=== PATIENT | female | born 1960 | race African-American/Black ===

== ENCOUNTER 2017-04-10 02:56 | Inpatient (IN) ==
[2017-04-10] MEDS ORDERED: Ondansetron ODT 4 MG TAB.RAPDIS SL ONE (06:03)
--- NOTE | 2017-04-10 09:11 | Internal Med History&Physical ---
Date of Encounter: 04/10/17 Time of Encounter: 09:09 Assessment and Plan (1) BRBPR (bright red blood per rectum) Current visit: Yes Status: Acute Check stool for occult blood. Follow H&H. Gastroenterology consultation (2) Alcohol withdrawal Current visit: Yes Status: Acute Start patient on CIWA protocol. Qualifiers: Qualified Code(s): F10.239 - Alcohol dependence with withdrawal, unspecified Internal Medicine - H&P: HPI Chief complaint: bleeding per rectum History of present illness: Ms. Bradley is a 56 year old female with history of hepatitis C virus, mixed connective tissue disease, hypertension, breast-cancer status post left lumpectomy and neuropathy, daily alcoholic drinks approximately half a 5th of alcohol daily was sent from the [facility] because of concern on G.I. bleeding. Yesterday patient had an episode of bright red bleeding per rectum. She denies any Melena nausea or hematemesis. She denies any abdominal pain. She denies constipation and does not think this is similar to her prior hemorrhoidal bleeding. She had a colonoscopy 5 years ago which was unremarkable. She denies taking any antiplatelet or anticoagulant medications. She denies taking nonsteroidal drugs on regular basis. Patient denies any suicidal thoughts. Past Med Surg Social Fam HX - Past Medical History Medical history: arthritis, DVT, GERD, hepatitis, hypertension, RA Psychiatric history: anxiety - Social History Smoking Status: Never smoker Smokeless Tobacco Status: No Alcohol use: heavy, recent Drug use: none - Family History Father Living Status: Cause of : Pancreatitis Hx Family Cardiac Disorders: No Hx Family Respiratory Disorders: No Hx Family Cancer: Yes Hx Family GI Disorders: No Hx Family Genitourinary Disorders: No Hx Family Endocrine Disorder: Yes Hx Family Musculoskeletal Disorders: No Hx Family Neuromuscular Disorders: No Hx Family Neurologic Disorders: Yes Hx Family HEENT Disorders: No Hx Family Autoimmune Disorders: No Hx Family Reproductive Disorders: No Internal Medicine - H&P: Meds Gabapentin [Neurontin] 300 mg PO BID 04/10/17 [History] Omeprazole 20 mg PO DAILY 04/10/17 [History] Trazodone HCl 100 mg PO HS 04/10/17 [History] Valsartan/Hydrochlorothiazide [Diovan Hct 320-25 mg Tablet] 1 each PO DAILY 10/22 [History] Venlafaxine XR (24 HR) [Effexor XR] 37.5 mg PO BID 04/10/17 [History] amLODIPine [Norvasc] 5 mg PO DAILY 04/10/17 [History] 3 Allergy/AdvReac Type Severity Reaction Status Date / Time No Known Allergies Allergy Verified 04/10/17 05:19 All Systems PM: A 10-system review of systems was performed and is negative for pertinent findings except as documented above in the HPI. Review of systems: 10.2 use systems is negative except for HPI - Constitutional Vitals: Temp Pulse Resp BP Pulse Ox 98.4 F 105 16 160/92 97 04/10/17 07:03 04/10/17 07:03 04/10/17 07:03 04/10/17 07:03 04/10/17 07:03 Exam: Gen.: patient is alert oriented times 3 cardiac: normal S1 S2 no additional sounds or murmurs chest: no active wheezing or bronchial breathing abdomen soft nontender nondistended normal bowel sounds lower extremity no swelling. Neuro: no new focal deficits
[2017-04-10] MEDS ORDERED: Ondansetron 4 MG/2 ML VIAL IVP PRN (09:15)
[2017-04-10] MEDS ORDERED: Valsartan 320 MG, hydroCHLOROthiazide 25 MG PO SCH (09:22)
[2017-04-10] MEDS: Valsartan 160 MG TABLET PO SCH (12:07)
[2017-04-10] MEDS: *HR* LORazepam 2 MG/ML VIAL IVP PRN ×2 (12:07→17:14)
[2017-04-10] MEDS: hydroCHLOROthiazide 25 MG TABLET PO SCH (12:07)
[2017-04-10] MEDS: amLODIPine 5 MG TABLET PO SCH (12:07)
[2017-04-10 12:23] LABS: Basophils % 1.1 %; Eosinophils # 0.1 K/mcL (0.0-0.6); Eosinophils % 3.6 %; Hematocrit 34.8 % (35.3-44.9); Immature Granulocytes % 0.4 % (0-4); Lymphocytes % 30.2 %; Mean Corpuscular HGB Conc 31.6 g/dL (31.6-35.5); Mean Corpuscular Hemoglobin 28.3 pg (28.0-33.3); Mean Corpuscular Volume 89.5 fL (83.0-100.0); Mean Platelet Volume 11.1 fL (9.4-12.4); Monocytes % 23.3 %; Platelet Count 122 K/mcL (140-400); Red Blood Count 3.89 M/mcL (3.82-4.97); Red Cell Distribution Width 14.8 % (11.5-14.5); Segmented Neutrophils % 41.4 %
[2017-04-10 12:25] LABS: Lymphocytes # 0.9 K/mcL (0.6-4.6); Monocytes # 0.7 K/mcL (0.0-1.3); Neutrophils # 1.2 K/mcL (1.6-8.9)
[2017-04-10 12:28] LABS: Prothrombin Time 10.6 Seconds (9.4-12.1)
[2017-04-10 12:31] LABS: Activated Partial Thrombo Time 44.7 Seconds (26.0-36.0)
[2017-04-10 12:38] LABS: Alanine Aminotransferase 56 Units/L (0-55); Albumin 3.3 g/dL (3.5-5.0); Albumin/Globulin Ratio 0.7 (1.1-2.2); Alkaline Phosphatase 123 Units/L (38-126); Aspartate Amino Transferase 141 Units/L (5-34); BUN/Creatinine Ratio 25 (6-26); Bilirubin,Total 1.3 mg/dL (0.2-1.2); Blood Urea Nitrogen 24 mg/dL (7-20); Calcium 9.2 mg/dL (8.6-10.8); Carbon Dioxide 24 mEq/L (19-29); Chloride 108 mEq/L (98-109); Globulin 4.5 g/dL (2.4-3.5); Glucose 84 mg/dL (70-99); Magnesium 1.1 mg/dL (1.6-2.6); Osmolality,Calculated 301 (280-300); Potassium 4.1 mEq/L (3.5-4.5); Sodium 144 mEq/L (136-145); Total Protein 7.8 g/dL (6.0-8.3); eGFR For African Americans > 60 (> 60); eGFR For Non-African Americans > 60 (> 60)
[2017-04-10 13:01] LABS: Platelet Estimate Slight Decrease (Normal)
[2017-04-10] MEDS ORDERED: Artificial Tears SOLN 15 ML BOTTLE BOTH EYES PRN (13:17)
[2017-04-10] MEDS: Pantoprazole 40 MG VIAL IVP SCH ×2 (16:54→17:12)
[2017-04-10] MEDS ORDERED: Magnesium Sulfate 2 GM in D5% in Water 100 ML IVPB ONE (16:59)
[2017-04-10] MEDS: Gabapentin 300 MG CAPSULE PO SCH (20:12)
[2017-04-10] MEDS: traZODone 50 MG TABLET PO SCH (20:12)
[2017-04-10] MEDS: Venlafaxine XR (24 HR) 37.5 MG CAP.ER.24H PO SCH (20:12)
[2017-04-10 22:33] LABS: Hematocrit 35.1 % (35.3-44.9); Hemoglobin 11.2 g/dL (11.5-15.4)
[2017-04-11 04:14] LABS: Eosinophils % 5.8 %; Hematocrit 32.2 % (35.3-44.9); Hemoglobin 10.4 g/dL (11.5-15.4); Lymphocytes % 32.3 %; Mean Corpuscular HGB Conc 32.3 g/dL (31.6-35.5); Mean Corpuscular Hemoglobin 28.7 pg (28.0-33.3); Mean Corpuscular Volume 88.7 fL (83.0-100.0); Mean Platelet Volume 11.5 fL (9.4-12.4); Monocytes % 20.7 %; Platelet Count 112 K/mcL (140-400); Red Blood Count 3.63 M/mcL (3.82-4.97); Red Cell Distribution Width 14.6 % (11.5-14.5); Segmented Neutrophils % 40.5 %
[2017-04-11 04:15] LABS: Basophils % 0.7 %; Eosinophils # 0.2 K/mcL (0.0-0.6); Monocytes # 0.6 K/mcL (0.0-1.3); Neutrophils # 1.2 K/mcL (1.6-8.9)
[2017-04-11 04:17] LABS: Lymphocytes # 0.9 K/mcL (0.6-4.6)
[2017-04-11 04:27] LABS: BUN/Creatinine Ratio 22 (6-26); Blood Urea Nitrogen 21 mg/dL (7-20); Calcium 9.1 mg/dL (8.6-10.8); Carbon Dioxide 25 mEq/L (19-29); Chloride 106 mEq/L (98-109); Glucose 92 mg/dL (70-99); Magnesium 1.4 mg/dL (1.6-2.6); Osmolality,Calculated 295 (280-300); Potassium 3.8 mEq/L (3.5-4.5); Sodium 141 mEq/L (136-145); eGFR For African Americans > 60 (> 60); eGFR For Non-African Americans 60 (> 60)
[2017-04-11 04:40] LABS: Large Platelets Present (Not Present); Platelet Estimate Slight Decrease (Normal)
--- NOTE | 2017-04-11 07:28 | Venous Imaging Report ---
UE Venous Duplex Patient Name:Genna Bradley Order Number:[id number] Procedure Date:04/10/2017 Date:2Age:56 yrs Gender:Female Location:[facility] Room #: 2NE25 Molding Process Technician:Rosa Lorenzo RDCS, ABDOUL Referring MD:Jose Andrade MD Reading MD:Hussein García MD Primary Indications:R/O DVT Secondary Indications: Risk Factors Yes/No Hx of DVT Yes Impressions: The right brachial vein has acute deep venous thrombosis. Normal right upper extremity superficial venous exam. Recommendations: Test completed on 04/10/2017 at 2:50:00 pm. Critical findings reported to Pt RN in person at 3:00:00 pm on 04/10/2017 by Rosa Lorenzo RDCS, ABDOUL. Findings Venous Duplex Results: Right: Venous imaging of the upper extremity reveals full patency and normal vessel compressibility of the right jugular, right subclavian, right axillary, right cephalic, right basilic, right radial and right ulnar. Doppler signals in the evaluated veins were normal. The right brachial demonstrates an incompressible vein. Flow was continuous and it did not augment. Prior Study: No prior study available for comparison. Upper Extremity Venous Duplex Side Vein Compress Spontaneous Flow Augment Right Jugular Normal Yes Phasic Yes Right Subclavian Normal Yes Phasic Yes Right Axillary Normal Yes Phasic Yes Right Brachial None no Continuous no Right Cephalic Normal Yes Phasic Yes Right Basilic Normal Yes Phasic Yes Right Radial Normal Yes Phasic Yes Right Ulnar Normal Yes Phasic Yes Updated by Hussein García MD on 04/11/2017 7:21:40 AM electronically signed on 04/11/2017 7:21:55 AM with status of Final
[2017-04-11] MEDS ORDERED: Magnesium Sulfate 2 GM in D5% in Water 100 ML IVPB ONE (08:39)
[2017-04-11] MEDS ORDERED: *HR* LORazepam 2 MG/ML VIAL IVP PRN ×2 (08:40)
[2017-04-11] MEDS ORDERED: SODIUM CHLORIDE/NAHCO3/KCL/PEG 4,000 ML SOLN.RECON PO ONE ×2 (09:19→17:00)
[2017-04-11] MEDS: amLODIPine 5 MG TABLET PO SCH (09:26)
[2017-04-11] MEDS: Valsartan 160 MG TABLET PO SCH (09:27)
[2017-04-11] MEDS: hydroCHLOROthiazide 25 MG TABLET PO SCH (09:27)
[2017-04-11] MEDS: Gabapentin 300 MG CAPSULE PO SCH ×2 (09:27→21:01)
[2017-04-11] MEDS: Venlafaxine XR (24 HR) 37.5 MG CAP.ER.24H PO SCH ×2 (09:27→21:00)
[2017-04-11] MEDS ORDERED: Thiamine (B-1) 100 MG, Folic Acid 1 MG, MVI, adult with vitamin K 10 ML in 0.9 % Sodi... IVPB SCH (10:18)
--- NOTE | 2017-04-11 10:23 | Internal Med Progress Note ---
Date of Encounter: 04/11/17 Time of Encounter: 10:19 - Assessment and plan (1) BRBPR (bright red blood per rectum) Current Visit: Yes Status: Acute Assessment and plan: Awaiting GI evaluation Awaiting stool occult, pt reports of having a bowel movement this morning and denies noticing any bleeding clear liquid diet H&H low but acceptable no acute bleeding reported monitor H&H NPO after midnight for possible GI procedure in am (Colonoscopy) (2) DVT (deep venous thrombosis) Current Visit: Yes Status: Acute Assessment and plan: New finding of RUE DVT (Right brachial vein) pt reports of having DVT in the past will obtain b/l LE venous doppler to rule out DVT given pt's persistent calf tenderness hold off on anticoagulation at this time given risk of bleeding if GI work up negative for bleeding, will start patient on anticoagulation Pt has history of breast ca, s/p lumpectomy and chemotherapy, currently in remission. Qualifiers: DVT location: upper extremity Affected thrombotic vein of extremity: brachial Chronicity: acute Laterality: right Qualified Code(s): I82.621 - Acute embolism and thrombosis of deep veins of right upper extremity (3) Hypertension Current Visit: Yes Status: Chronic Assessment and plan: Noted to be hypertensive this morning will recheck BP once patient receives all of her home meds (Amlodipine, HCTZ) Added Hydralazine 10mg IV q6h prn SBP>160 pt clinically asymptomatic at this time Qualifiers: Hypertension type: essential hypertension Qualified Code(s): I10 - Essential (primary) hypertension (4) Alcohol withdrawal Current Visit: Yes Status: Acute Assessment and plan: Will closely monitor for alcohol withdrawal continue folic acid and thiamine supplementation CIWA protocol Lorazepam as needed as per [facility] protocol will closely monitor pt already seeking help at the [facility] for alcohol abuse. Qualifiers: Complication of substance-induced condition: with unspecified complication Qualified Code(s): F10.239 - Alcohol dependence with withdrawal, unspecified - Subjective Interval history: Pt is a 56 y/o female admitted for evaluation of lower GI bleed. patient seen and examined at bedside. Resting in bed and denies any recurrent bleeding episodes since arrival to the hospital. She states she was at the [facility] for detox for alcohol abuse and that is where she had a bright red blood per rectum which prompted her transfer to the [facility]. She reports of drinking half of a 1/5th of vodka daily, states last drink was on Saturday afternoon. Noted to be hypertensive this morning but denies any headache, chest pain, sob, abd pain, n/ v, fever, or chills. - Constitutional Vitals: Temp Pulse Resp BP Pulse Ox 98.3 F 95 16 186/106 97 04/11/17 07:27 04/11/17 07:27 04/11/17 07:27 04/11/17 07:27 04/11/17 07:27 General appearance: Present: cooperative, A&O X 3, no acute distress, obese, answers questions appropriately - Head Head exam: Present: atraumatic, normocephalic - Eye Eye exam: Present: conjuntiva pink, sclera anicteric - Respiratory Respiratory exam: Present: CTAB. Absent: accessory muscle use, rales, rhonchi, wheezes - Cardiovascular Cardiovascular exam: Present: +S1, +S2, tachycardia. Absent: diastolic murmur, systolic murmur - GI/Abdominal GI/Abdominal exam: Present: normal bowel sounds, soft, no peritoneal signs. Absent: distended, tenderness - Extremities Exam Extremities exam: Present: calf tenderness (Lt leg ), warm, radial pulses palpable and symmetrical. Absent: pedal edema - Neurological Exam Neurological exam: Present: alert, oriented X3 - Psychiatric Psychiatric exam: Present: normal affect, normal mood Internal Medicine: Result - Labs CBC & Chem 7: 04/11/17 03:54 04/11/17 03:54 Labs: Short CBC 04/10/17 04/10/17 04/11/17 Range/Units 12:00 22:15 03:54 WBC 2.8 L 2.9 L (4.3-11.1) K/mcL Hgb 11.0 L 11.2 L 10.4 L (11.5-15.4) g/dL Hct 34.8 L 35.1 L 32.2 L (35.3-44.9) % Plt Count 122 L 112 L (140-400) K/mcL Neutrophils # 1.2 L 1.2 L (1.6-8.9) K/mcL BMP 04/10/17 04/11/17 12:00 03:54 Sodium 144 141 Potassium 4.1 3.8 Chloride 108 106 Carbon Dioxide 24 25 BUN 24 H 21 H Creatinine 0.96 0.97 Glucose 84 92 Calcium 9.2 9.1 Liver Function 04/10/17 Range/Units 12:00 Total Bilirubin 1.3 H (0.2-1.2) mg/dL AST 141 H (5-34) Units/L ALT 56 H (0-55) Units/L Alkaline Phosphatase 123 (38-126) Units/L Albumin 3.3 L (3.5-5.0) g/dL - ABG Interpretation ABG results: PT/INR, D-dimer PT 10.6 Seconds (9.4-12.1) 04/10/17 12:00 Consult Discharge Plan - Plan [facility]errals: [facility] [Primary Care Provider] -
[2017-04-11] MEDS: Acetaminophen 325 MG TABLET PO PRN ×2 (11:05→21:01)
--- NOTE | 2017-04-11 11:16 | Gastroenterology Consult Note ---
<Clare Wu - Last Filed: 04/11/17 11:06> Date of Encounter: 04/11/17 Time of Encounter: 10:30 - Assessment and plan (1) Hepatitis C infection Current Visit: Yes Status: Acute (2) BRBPR (bright red blood per rectum) Current Visit: Yes Status: Acute Assessment and plan: Pt has history of alcoholism, hepatitis C and presents with bright red rectal bleeding. Discriminatory function is less than 32 therefore treatment will be symptomatically. Will prep for colonoscopy tomorrow. She also has DVT of right upper extremity followed by PCP. - Time Spent With Patient Total time spent is greater than 50% in coordination of care (as documented) at patient's floor/unit and/or counseling patient: GI History of Present Illness - Data of Consult Patient: new to practice Consult date: 04/11/17 Requesting Physician: Ana Lacey MD - Consult Narrative Reason for consult: rectal bleeding History of present illness: Ms. Bradley is a 56 year old female who presented with a large amount of bright red rectal bleeding. The patient has a past medical history of alcohol abuse, hepatitis C, hypertension, breast CA with lumpectomy and arthritis. She was recently in inpatient rehab for alcohol abuse in [place], she developed peripheral edema and was unable to walk and transferred to the hospital there. After 4 days she signed out AMA and came back to [place]. She had a picc line inserted and has developed a DVT in her right upper extremity. She presented from the [place] with large amount of bright red rectal bleeding x 1 episode yesterday. She reports continued streaky blood and dark stools today. She reports that she normally has BM once every 3 days, but has had diarrhea yesterday and today. She denies any abdominal pain, nausea, or vomiting. She denies fever or chills. She was diagnosed with hep C 30 years ago. Her father of pancreatitis. She reports daily alcohol consumption of half a fifth of liquor. She reports occasional dysphagia and GERD symptoms. MELD NA score: 7 DF: Colonoscopy: 5 years ago (Dr Cedeño) EGD: unsure NSAIDS: occasional ibuprofen Anticoagulants: none at home Past Med Surg Social Fam HX - Past Medical History Medical history: arthritis, DVT, GERD, hepatitis, hypertension, RA Psychiatric history: anxiety - Social History Smoking Status: Never smoker Smokeless Tobacco Status: No Alcohol use: heavy, recent Drug use: none - Family History Father Living Status: Cause of : Pancreatitis Hx Family Cardiac Disorders: No Hx Family Respiratory Disorders: No Hx Family Cancer: Yes Hx Family GI Disorders: No Hx Family Genitourinary Disorders: No Hx Family Endocrine Disorder: Yes Hx Family Musculoskeletal Disorders: No Hx Family Neuromuscular Disorders: No Hx Family Neurologic Disorders: Yes Hx Family HEENT Disorders: No Hx Family Autoimmune Disorders: No Hx Family Reproductive Disorders: No Review of Systems: GI: as per [place] [facility]: denies fever, has some chills EYES: denies yellow discoloration ENT: occasional pain with swallowing and difficulty swallowing CARDIO: denies chest pain, palpitations RESP: No Shortness of breath with exertion : denies change in color of urine NEURO: pt has had incrased weakness HEME: Denies any bruising MS: chronic back and joint pain, . DERM: denies rash or itching PSYCH: history of anxiety or depression - Constitutional Vitals: Temp Pulse Resp BP Pulse Ox 98.0 F 102 18 176/95 97 04/11/17 11:02 04/11/17 11:02 04/11/17 11:02 04/11/17 11:02 04/11/17 11:02 Exam: CONSTITUTIONAL:~alert, no acute distress.~HEAD:~normocephalic, edema noted left side of face.~EYES:~no jaundice.~NECK:~no obvious swelling.~HEART:~regular rate and rhythm, no murmurs.~LUNGS:~bilateral good air entry.~ABDOMEN:~non distended , soft, non tender, no masses pulpable, no organomegaly.~RECTAL EXAM:~Deferred.~ EXTREMITIES:~no clubbing, 1+ BUE edema, trace BLE edea. SKIN:~no stigmata of chronic liver disease.~NEUROLOGIC:~no obvious focal defect.~~~~ Results - Labs CBC & Chem 7: 04/11/17 03:54 04/11/17 03:54 Labs: Last Result Calcium 9.1 mg/dL (8.6-10.8) 04/11/17 03:54 Stool Occult Blood Negative (Negative) 04/11/17 09:50 Entire Visit Hgb 10.4 g/dL (11.5-15.4) L 04/11/17 03:54 Hct 32.2 % (35.3-44.9) L 04/11/17 03:54 PT 10.6 Seconds (9.4-12.1) 04/10/17 12:00 Total Bilirubin 1.3 mg/dL (0.2-1.2) H 04/10/17 12:00 AST 141 Units/L (5-34) H 04/10/17 12:00 ALT 56 Units/L (0-55) H 04/10/17 12:00 - ABG ABG results: PT/INR, D-dimer PT 10.6 Seconds (9.4-12.1) 04/10/17 12:00 Consult Discharge Plan - Plan [facility]errals: [facility] [Primary Care Provider] - <Meagan Wood - Last Filed: 04/11/17 20:31> Date of Encounter: 04/11/17 Time of Encounter: 17:30 - Time Spent With Patient Total time spent is greater than 50% in coordination of care (as documented) at patient's floor/unit and/or counseling patient: GI History of Present Illness - Data of Consult Requesting Physician: Ana Lacey MD - Consult Narrative History of present illness: Ms. Bradley is a 56 year old female - Constitutional Vitals: Temp Pulse Resp BP Pulse Ox 97.9 F 95 18 181/89 97 04/11/17 16:27 04/11/17 16:27 04/11/17 16:27 04/11/17 16:27 04/11/17 16:27 Results - Labs CBC & Chem 7: 04/11/17 03:54 04/11/17 03:54 Labs: Last Result Calcium 9.1 mg/dL (8.6-10.8) 04/11/17 03:54 Stool Occult Blood Negative (Negative) 04/11/17 09:50 Entire Visit Hgb 10.4 g/dL (11.5-15.4) L 04/11/17 03:54 Hct 32.2 % (35.3-44.9) L 04/11/17 03:54 PT 10.6 Seconds (9.4-12.1) 04/10/17 12:00 Total Bilirubin 1.3 mg/dL (0.2-1.2) H 04/10/17 12:00 AST 141 Units/L (5-34) H 04/10/17 12:00 ALT 56 Units/L (0-55) H 04/10/17 12:00 - ABG ABG results: PT/INR, D-dimer PT 10.6 Seconds (9.4-12.1) 04/10/17 12:00 - Attending Attestation I examined this patient and my medical decision-making was reviewed with the Resident Physician. I agree with the documented findings, disposition and treatment plan as described except to the extent set forth below. 1: pt with ALD, DF less then 32 , no need for IV steroids 2: Rectal bleed: Colon to r/o LGI causes
[2017-04-11] MEDS ORDERED: Polyethylene Glycol 3350 255 GM POWDER PO ONE (18:00)
[2017-04-11] MEDS: Pantoprazole 40 MG VIAL IVP SCH (18:17)
[2017-04-11] MEDS: traZODone 50 MG TABLET PO SCH (21:01)
[2017-04-11 23:58] LABS: Hematocrit 34.8 % (35.3-44.9); Hemoglobin 10.9 g/dL (11.5-15.4)
[2017-04-12 03:35] LABS: Basophils % 0.3 %; Eosinophils # 0.1 K/mcL (0.0-0.6); Eosinophils % 4.1 %; Hematocrit 32.4 % (35.3-44.9); Hemoglobin 10.2 g/dL (11.5-15.4); Immature Granulocytes % 0.3 % (0-4); Lymphocytes # 0.7 K/mcL (0.6-4.6); Mean Corpuscular HGB Conc 31.5 g/dL (31.6-35.5); Mean Corpuscular Hemoglobin 28.3 pg (28.0-33.3); Mean Platelet Volume 12.3 fL (9.4-12.4); Monocytes % 28.1 %; Nucleated Red Blood Cells 0.6 /100 WBC (0); Platelet Count 108 K/mcL (140-400); Red Cell Distribution Width 14.6 % (11.5-14.5); Segmented Neutrophils % 47.2 %
[2017-04-12 03:37] LABS: Neutrophils # 1.7 K/mcL (1.6-8.9)
[2017-04-12 03:57] LABS: Calcium 9.2 mg/dL (8.6-10.8); Magnesium 1.5 mg/dL (1.6-2.6); Phosphorous 3.3 mg/dL (2.3-4.7); Potassium 3.5 mEq/L (3.5-4.5)
[2017-04-12 04:03] LABS: Platelet Estimate Normal (Normal)
[2017-04-12] MEDS: Pantoprazole 40 MG VIAL IVP SCH ×2 (05:35→17:35)
--- NOTE | 2017-04-12 06:53 | Venous Imaging Report ---
LE Venous Duplex Patient Name:Genna Bradley Order Number:[id number] Procedure Date:04/11/2017 Date:2Age:56 yrs Gender:Female Location:[facility] Room #: 2NE25 Business Development Sales Executive:Eugenia James RVT Referring MD:Ana Lacey MD sr. media manager:[facility] Reading MD:Hussein García MD Primary Indications:Rule Out DVT Secondary Indications: Risk Factors Yes/No Hx of DVT Yes Impressions: Normal bilateral lower extremity deep and superficial venous exam. Findings Venous Duplex Results: Right: Venous imaging of the lower extremity reveals full patency and normal vessel compressibility of the right distal iliac, right common femoral, right superficial femoral, right popliteal, right posterior tibial, right peroneal, right great saphenous and right lesser saphenous. Doppler signals in the evaluated veins were normal. Left: Venous imaging of the lower extremity reveals full patency and normal vessel compressibility of the left distal iliac, left common femoral, left superficial femoral, left popliteal, left posterior tibial, left peroneal, left great saphenous and left lesser saphenous. Doppler signals in the evaluated veins were normal. Prior Study: No prior study available for comparison. Updated by Hussein García MD on 04/12/2017 6:47:57 AM electronically signed on 04/12/2017 6:48:15 AM with status of Final
--- NOTE | 2017-04-12 07:33 | Anesthesia Evaluation PreOp ---
Date of Encounter: 04/12/17 Time of Encounter: 07:30 - Past History Planned Operation: colonoscopy Cardiac History: HTN Pulmonary History: Denies Any Significant HX HEELER MACHINE History: Denies Any Significant HX Other Medical History: Hepatic (Hep C), GERD, Other (breast cancer Currently has right brachial DVT) Anesthesia History: No Prior Anesthetic Complications, Past Anesthesia ( lumpectomy) : No Alcohol Use: heavy (half fifth per day), recent Drug use: none Medications and Allergies Gabapentin [Neurontin] 300 mg PO BID 04/10/17 [History] Omeprazole 20 mg PO DAILY 04/10/17 [History] Trazodone HCl 100 mg PO HS 04/10/17 [History] Valsartan/Hydrochlorothiazide [Diovan Hct 320-25 mg Tablet] 1 each PO DAILY 10/22 [History] Venlafaxine XR (24 HR) [Effexor XR] 37.5 mg PO BID 04/10/17 [History] amLODIPine [Norvasc] 5 mg PO DAILY 04/10/17 [History] 3 Allergy/AdvReac Type Severity Reaction Status Date / Time No Known Allergies Allergy Verified 04/10/17 05:19 - Meds/Allergy Pre-op Review Medications Reviewed: Yes Allergies Reviewed: Yes Beta Blockers on Current Med List: No Anesthesia Results - Labs 04/12/17 03:05 04/12/17 03:05 Anesthesia Exam Selected Entries 04/12/17 03:00 Temperature 98.0 F Pulse Rate 105 Respiratory Rate 17 Blood Pressure 138/65 O2 Sat by Pulse Oximetry 97 Weight: 86.5kg - HEENT Pupil (Motor): EOMI Mallampati: II Teeth: Normal Oral Opening: Greater than 3 - HEELER MACHINE LOC: Oriented HEELER MACHINE Motor: Normal RUE, Normal LUE, Normal RLE, Normal LLE, Normal Face HEELER MACHINE Sensory: Normal: RUE, LUE, RLE, LLE, Face - Cardiac Rhythm: Regular Murmur: None - Pulmonary Breath Sounds: bilateral Clear Respiratory Effort: Symmetrical Anesthesia Assess/Plan ASA Score: 3 Modified Alexandra Scale for Level of Consciousness: Cooperative, oriented, and tranquil Anesthetic Plan: MAC Monitoring Plan: Standard Monitors Recovery Plan: Other (discussed MAC, agrees to proceed)
[2017-04-12] MEDS ORDERED: Magnesium Sulfate 2 GM in D5% in Water 100 ML IVPB ONE (07:54)
[2017-04-12] MEDS: Gabapentin 300 MG CAPSULE PO SCH ×2 (09:17→21:44)
[2017-04-12] MEDS: hydroCHLOROthiazide 25 MG TABLET PO SCH (09:18)
[2017-04-12] MEDS: Valsartan 160 MG TABLET PO SCH (09:19)
[2017-04-12] MEDS: amLODIPine 5 MG TABLET PO SCH (09:20)
[2017-04-12] MEDS: Venlafaxine XR (24 HR) 37.5 MG CAP.ER.24H PO SCH ×2 (09:20→21:44)
--- NOTE | 2017-04-12 11:15 | Internal Med Progress Note ---
Date of Encounter: 04/12/17 Time of Encounter: 10:25 - Assessment and plan (1) BRBPR (bright red blood per rectum) Current Visit: Yes Status: Acute Assessment and plan: GI evaluation appreciated Colonoscopy reported diffuse diverticulosis and internal hemorrhoids, fiber supplementation recommended No acute bleeding reported H&H low but acceptable no recurrent bleeding episodes reported stool occult negative Will start anticoagulation as per hematology recommendations, pt will benefit from NOAC (2) DVT (deep venous thrombosis) Current Visit: Yes Status: Acute Assessment and plan: New finding of RUE DVT (Right brachial vein) pt reports of having DVT in the past b/l LE venous doppler negative for DVT awaiting hematology evaluation for initiation of anticoagulation, pt may benefit from NOAC Pt has history of breast ca, s/p lumpectomy and chemotherapy, currently in remission. Qualifiers: DVT location: upper extremity Affected thrombotic vein of extremity: brachial Chronicity: acute Laterality: right Qualified Code(s): I82.621 - Acute embolism and thrombosis of deep veins of right upper extremity (3) Hypertension Current Visit: Yes Status: Chronic Assessment and plan: BP within acceptable range, however noted to be persistently tachycardic despite scoring low on CIWA will decrease patient's home dose of Losartan and start low dose BB continue home medications will closely monitor BP Qualifiers: Hypertension type: essential hypertension Qualified Code(s): I10 - Essential (primary) hypertension (4) Alcohol withdrawal Current Visit: Yes Status: Acute Assessment and plan: Will closely monitor for alcohol withdrawal continue folic acid and thiamine supplementation CIWA protocol Lorazepam as needed as per CIAL protocol will closely monitor As per patient she is already seeking help at the [facility] for alcohol abuse. Qualifiers: Complication of substance-induced condition: with unspecified complication Qualified Code(s): F10.239 - Alcohol dependence with withdrawal, unspecified (5) Hypomagnesemia Current Visit: Yes Status: Acute Assessment and plan: Mg supplemented continue to monitor electrolytes and replace as needed - Subjective Interval history: Pt is a 56 y/o female admitted for evaluation of lower GI bleed. Patient underwent colonoscopy this morning which showed diverticulosis and internal hemmorrhoids, no acute bleeding was reported. Pt resting in bed and denies an discomfort at this time Hematology consultation requested for anticoagulation for RUE DVT. It was brought to my attention that the patient is from the [facility] psych inpatient unit, not the detox facility as she claimed to be. She was in psych inpatient for suicidal ideation. At this time she denies any suicidal ideation. Psych consultation requested as the patient will not be accepted back to the [facility] without psychiatry evaluation. - Constitutional Vitals: Temp Pulse Resp BP Pulse Ox 99.0 F 98 20 141/74 98 04/12/17 07:55 04/12/17 07:55 04/12/17 07:55 04/12/17 07:55 04/12/17 09:53 General appearance: Present: cooperative, A&O X 3, no acute distress, obese, answers questions appropriately - Head Head exam: Present: atraumatic, normocephalic - Eye Eye exam: Present: conjuntiva pink, sclera anicteric - Respiratory Respiratory exam: Present: CTAB. Absent: accessory muscle use, rales, rhonchi, wheezes - Cardiovascular Cardiovascular exam: Present: RRR, +S1, +S2. Absent: diastolic murmur, gallop, rubs, systolic murmur - GI/Abdominal GI/Abdominal exam: Present: normal bowel sounds, soft, no peritoneal signs. Absent: distended, tenderness - Extremities Exam Extremities exam: Present: pedal edema (trace pedal edema), warm, radial pulses palpable and symmetrical. Absent: cyanotic - Neurological Exam Neurological exam: Present: alert, oriented X3 - Psychiatric Psychiatric exam: Present: normal affect, normal mood. Absent: suicidal ideation Internal Medicine: Result - Labs CBC & Chem 7: 04/12/17 03:05 04/12/17 03:05 Labs: Short CBC 04/11/17 04/12/17 Range/Units 23:45 03:05 WBC 3.5 L (4.3-11.1) K/mcL Hgb 10.9 L 10.2 L (11.5-15.4) g/dL Hct 34.8 L 32.4 L (35.3-44.9) % Plt Count 108 L (140-400) K/mcL Neutrophils # 1.7 (1.6-8.9) K/mcL BMP 04/12/17 03:05 Sodium 139 Potassium 3.5 Chloride 105 Carbon Dioxide 24 BUN 17 Creatinine 1.34 H Glucose 117 H Calcium 9.2 - ABG Interpretation ABG results: PT/INR, D-dimer PT 10.6 Seconds (9.4-12.1) 04/10/17 12:00 Consult Discharge Plan - Plan Referrals: [facility] [Primary Care Provider] -
[2017-04-12] MEDS: Acetaminophen 325 MG TABLET PO PRN (13:30)
--- NOTE | 2017-04-12 14:43 | Oncology Inp Consult Note ---
<Loreta Smith - Last Filed: 04/12/17 16:35> Date of Encounter: 04/12/17 Time of Encounter: 14:00 Assessment and Plan (1) DVT (deep venous thrombosis) Status: Acute Assessment and plan: - Right forearm swelling since mid March and RUE US found acute deep venous thrombosis in right brachial vein. - Likely provoked DVT from IV fluid or medication use during her prior hospitalization. - Colonoscopy found diverticulosis and internal hemorrhoid but no active bleeding. - Case was discussed with oncology attending Dr. Espinosa. Recommend to start Xarelto 15 mg BID for 3 weeks and then 20 mg daily. - Upper extremity DVT is considered low risk for PE. Therefore if patient develops bleeding issue, Xarelto dose can be decreased to 15 mg daily. - Patient will need to follow up with hematology/oncology given this is her second episode of DVT and likely occurred even with SQ heparin (per patient). Patient verbalized her understanding and liked to follow up with her oncology in [place]. Qualifiers: DVT location: upper extremity Affected thrombotic vein of extremity: brachial Chronicity: acute Laterality: right Qualified Code(s): I82.621 - Acute embolism and thrombosis of deep veins of right upper extremity - Data of Consult Patient: new to practice Consult date: 04/12/17 Requesting Physician: Ana Lacey MD Primary Care Provider: PCP [place] - Consult Narrative Reason for consult: Anticoagulation for RUQ DVT History of present illness: Ms. Bradley is a 56 year old female with PMH of hepatitis C, mixed connective tissue disease, hypertension, alcohol abuse and history of left breast cancer status post left lumpectomy and chemoradiation therapy in 2009. Patient was sent from [place] detox for bright red blood per rectum and admitted on 04/10/17. Patient also complained of right forearm swelling since her prior hospitalization in mid March. Patient initially thought it's from IV fluid she received via right forearm at that time and per patient, she was on SQ heparin during that hospital stay. RUE US found acute deep venous thrombosis in right brachial vein. [place] [facility]ology/oncology is consulted on 04/12/17 regarding anticoagulation use. On the encounter, patient reports the right forearm swelling has improved compared to on admission. Patient denies fever, chills, focal weakness or worsening numbness/tingling of right hand, shortness of breath, chest pain. Per patient, this is her second DVT in her life. Her first DVT was at right upper arm in 2009 after removal of right upper arm PICC, which was placed for chemotherapy at that time. Per patient, she was on Coumadin for few weeks and not taking any anticoagulant at home since. Patient sees oncologist in [place] and was told cancer-free at this time. Patient reports last bloody bowel movement was two days ago and denies any active bleeding at this time. Patient had colonoscopy earlier today showing diverticulosis and internal hemorrhoid but no active bleeding. Past Med Surg Social Fam HX - Past Medical History Medical history: arthritis, DVT, GERD, hepatitis, hypertension, RA Psychiatric history: anxiety - Past Surgical History Surgical History: cancer surgery (left lumbectomy) - Social History Smoking Status: Never smoker Smokeless Tobacco Status: No Alcohol use: heavy (half fifth per day), recent Drug use: none - Family History Father Living Status: Cause of : Pancreatitis Hx Family Cardiac Disorders: No Hx Family Respiratory Disorders: No Hx Family Cancer: Yes Hx Family GI Disorders: No Hx Family Genitourinary Disorders: No Hx Family Endocrine Disorder: Yes Hx Family Musculoskeletal Disorders: No Hx Family Neuromuscular Disorders: No Hx Family Neurologic Disorders: Yes Hx Family HEENT Disorders: No Hx Family Autoimmune Disorders: No Hx Family Reproductive Disorders: No Medications and Allergies Gabapentin [Neurontin] 300 mg PO BID 04/10/17 [History] Omeprazole 20 mg PO DAILY 04/10/17 [History] Trazodone HCl 100 mg PO HS 04/10/17 [History] Valsartan/Hydrochlorothiazide [Diovan Hct 320-25 mg Tablet] 1 each PO DAILY 10/22 [History] Venlafaxine XR (24 HR) [Effexor XR] 37.5 mg PO BID 04/10/17 [History] amLODIPine [Norvasc] 5 mg PO DAILY 04/10/17 [History] Meloxicam 15 mg PO DAILY 04/12/17 [History] Rivaroxaban [Xarelto] 1 dose PO AD 30 Days #1 pack 04/12/17 [Rx] 3 Allergy/AdvReac Type Severity Reaction Status Date / Time No Known Allergies Allergy Verified 04/10/17 05:19 Constitutional: Absent: chills, fever(s) Eyes: Absent: change in vision Ears: Absent: decreased hearing Nose, mouth and throat: Absent: dysphagia Cardiovascular: Absent: chest pain Respiratory: Absent: cough, dyspnea, hemoptysis Gastrointestinal: Absent: abdominal pain, diarrhea, hematemesis, hematochezia, melena Genitourinary: Absent: dysuria, hematuria Neurological: Present: numbness (Residual from chemotherapy in the past), tingling (Residual from chemotherapy in the past). Absent: focal weakness Hematologic/Lymphatic: Present: easy bruising Oncology - Exam - Constitutional Vitals: Temp Pulse Resp BP Pulse Ox 98.1 F 96 16 121/59 98 04/12/17 11:32 04/12/17 11:32 04/12/17 11:32 04/12/17 11:32 04/12/17 11:32 General appearance: cooperative, no acute distress - Head Head exam: Present: atraumatic, normocephalic - Eye Eye exam: Present: EOMI, sclera anicteric - ENT ENT exam: Present: mucous membranes dry - Neck Neck exam: Present: full ROM, normal inspection. Absent: lymphadenopathy - Respiratory Respiratory exam: Present: CTAB. Absent: rales, rhonchi, wheezes - Cardiovascular Cardiovascular exam: Present: RRR, +S1, +S2 - GI/Abdominal GI/Abdominal exam: Present: normal bowel sounds, soft. Absent: tenderness - Extremities Exam Extremities exam: Present: normal inspection Additional comments: Mild right forearm non-pitting edema. - Neurological Exam Neurological exam: Present: alert, oriented X3, no focal deficits - Skin Skin exam: Present: intact, normal color, warm Oncology - Results Labs: Short CBC 04/11/17 04/12/17 Range/Units 23:45 03:05 WBC 3.5 L (4.3-11.1) K/mcL Hgb 10.9 L 10.2 L (11.5-15.4) g/dL Hct 34.8 L 32.4 L (35.3-44.9) % Plt Count 108 L (140-400) K/mcL Neutrophils # 1.7 (1.6-8.9) K/mcL BMP 04/12/17 03:05 Sodium 139 Potassium 3.5 Chloride 105 Carbon Dioxide 24 BUN 17 Creatinine 1.34 H Glucose 117 H Calcium 9.2 Consult Discharge Plan - Plan [facility] Care Provider[facility] - Prescriptions: Rivaroxaban [Xarelto] 1 dose PO AD 30 Days #1 pack <Jessica Espinosa S - Last Filed: 04/12/17 18:48> Date of Encounter: 04/12/17 Assessment and Plan (1) BRBPR (bright red blood per rectum) Status: Acute Assessment and plan: Colonoscopy 04/12/2017 showed diverticulosis. No major bleeding She is anemic with hemoglobin 10.8. Do anemia workup (2) DVT (deep venous thrombosis) Status: Acute Assessment and plan: Right approximately DVT could be provoked from IV fluids few weeks ago This is her second episode. First episode was around her breast cancer diagnosis. At that time currently she is anti-correlated with Coumadin for few weeks. Hypercoagulable workup can be done as an outpatient Xarelto 15 mg twice a day for 3 weeks then 20 mg a day. He has baseline anemia. Hemoglobin drops further or clinical evidence of bleeding would recommend reducing Xarelto to 15 mg once a day. Duration of anticoagulation. Considering this is her second episode she would qualify for long-term anticoagulation. But given this is only approximately DVT in the risk of PE is fairly low stop anticoagulation after 3-6 months especially given her history of GI bleed and anemia Qualifiers: DVT location: upper extremity Affected thrombotic vein of extremity: brachial Chronicity: acute Laterality: right Qualified Code(s): I82.621 - Acute embolism and thrombosis of deep veins of right upper extremity (3) Hepatitis C infection Status: Acute Assessment and plan: History of hepatitis C. Elevated liver enzymes are on 150 and ALT at 56 Has acute elevation in creatinine to 1.34. Baseline around 0.8 History of alcohol abuse. Thrombocytopenia could be secondary to above If necessary would consider CT abdomen to assess liver and spleen (4) HX: breast cancer Status: Acute Assessment and plan: Treated as mentioned above. Currently no evidence of recurrence - Data of Consult Requesting Physician: Ana Lacey MD Primary Care Provider: PCP [place] - Consult Narrative History of present illness: Ms. Bradley is a 56 year old female Oncology - Exam - Constitutional Vitals: Temp Pulse Resp BP Pulse Ox 98.5 F 88 16 170/85 97 04/12/17 18:33 04/12/17 18:33 04/12/17 18:33 04/12/17 18:33 04/12/17 18:33 Oncology - Results Labs: Short CBC 04/11/17 04/12/17 Range/Units 23:45 03:05 WBC 3.5 L (4.3-11.1) K/mcL Hgb 10.9 L 10.2 L (11.5-15.4) g/dL Hct 34.8 L 32.4 L (35.3-44.9) % Plt Count 108 L (140-400) K/mcL Neutrophils # 1.7 (1.6-8.9) K/mcL BMP 04/12/17 03:05 Sodium 139 Potassium 3.5 Chloride 105 Carbon Dioxide 24 BUN 17 Creatinine 1.34 H Glucose 117 H Calcium 9.2
[2017-04-12] MEDS: *HR* Rivaroxaban 15 MG TABLET PO SCH (15:34)
[2017-04-12] MEDS ORDERED: *HR* Propofol 500 MG/50 ML BOTTLE IVC ONE (16:49)
[2017-04-12] MEDS ORDERED: *HR* OxyCODONE/APAP 5/325 TABLET PO ONE (18:04)
[2017-04-12] MEDS: traZODone 50 MG TABLET PO SCH (21:44)
[2017-04-13 08:50] LABS: Hematocrit 30.9 % (35.3-44.9); Hemoglobin 9.6 g/dL (11.5-15.4); Immature Platelets 8.7 % (1.1-6.1); Mean Corpuscular HGB Conc 31.1 g/dL (31.6-35.5); Mean Corpuscular Hemoglobin 28.6 pg (28.0-33.3); Mean Platelet Volume 12.1 fL (9.4-12.4); Platelet Count 102 K/mcL (140-400); Red Blood Count 3.36 M/mcL (3.82-4.97); Red Cell Distribution Width 14.8 % (11.5-14.5)
[2017-04-13 09:00] LABS: Magnesium 1.6 mg/dL (1.6-2.6); Phosphorous 3.9 mg/dL (2.3-4.7); Potassium 3.6 mEq/L (3.5-4.5)
[2017-04-13] MEDS: Thiamine (B-1) 100 MG TABLET PO SCH (09:25)
[2017-04-13] MEDS: Valsartan 160 MG TABLET PO SCH (09:26)
[2017-04-13] MEDS: amLODIPine 5 MG TABLET PO SCH (09:27)
[2017-04-13] MEDS: Venlafaxine XR (24 HR) 37.5 MG CAP.ER.24H PO SCH ×2 (09:28→19:40)
[2017-04-13] MEDS: *HR* Rivaroxaban 15 MG TABLET PO SCH ×2 (09:28→16:25)
[2017-04-13] MEDS: Gabapentin 300 MG CAPSULE PO SCH ×2 (09:28→19:40)
[2017-04-13] MEDS: Folic Acid 1 MG TABLET PO SCH (09:28)
[2017-04-13] MEDS: Multivit/Ca/Min/Fe/FA 1 TAB TABLET PO SCH (09:29)
[2017-04-13] MEDS: hydroCHLOROthiazide 25 MG TABLET PO SCH (09:29)
[2017-04-13 09:36] LABS: Folate 9.7 ng/mL (7.0-31.4)
[2017-04-13 09:37] LABS: Eosinophils # 0.4 K/mcL (0.0-0.6); Large Platelets Present (Not Present); Monocytes # 0.7 K/mcL (0.0-1.3); Neutrophils # 1.6 K/mcL (1.6-8.9); Platelet Estimate Decreased (Normal)
--- NOTE | 2017-04-13 11:21 | Consult Note ---
Date of Encounter: 04/13/17 Time of Encounter: 10:30 Assessment & Recommendation (1) Alcohol dependence Current visit: Yes Status: Acute Assessment & Recommendation: patient will need out patient recovery agency legal counsel referral appointment with [facility] clinic for follow up in [place]. Qualifiers: Substance use status: in withdrawal Qualified Code(s): F10.230 - Alcohol dependence with withdrawal, uncomplicated History of Present Illness Requesting Physician: Ana Lacey MD Reason for consult: transfer from [facility] inpatient psych was admitted for suicidal ideation. History of present illness: Ms. Bradley is a 56 year old female was consulted today for being transferred from [place] inpatient psych unit. Ms. Bradley is pleasant , cooperative and able to give history. As per her she went to [facility] to get treated for ALCHOL detox and they sent to [facility]. States I do not know where this coming from that i was suicidal , i went for detox, I never said that and it is against my belief. she states i have been drinking more and daily , i went to [place] to get help , she was drinking Vodka daily 5th intake increased since middle of this year , stress of work mainly , and denies any seizure ot DT , she denies any other drugs. She states effexor and trazodone given by her OBGYN for her hot flashes and menopause s/s, taking effexor for 1 yr , trazodone added in 11/21 for sleep problems do not take it daily. she at present denies any depressive s/s, no manic, n psychosis. wants to go to out patient rehab and wants and interested in [facility]. She is a middle school assistant principal for 15 years. She has no prior psych history and no rehab in past. A/p Alcohol dependence mood disorder sec. to Alcohol At present patient is not in danger to self/others. Please continue effexor xr and trazodone. 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 Thank you for consult. CC: Ana Lacey MD Past Med Surg Social Fam HX - Past Medical History Medical history: arthritis, DVT, GERD, hepatitis, hypertension, RA - Past Psychiatric History Psychiatric history: Reports: no psych history Family psychiatric history: No Family History of Suicide: None - Past Surgical History Surgical History: cancer surgery (left lumbectomy) - Social History Smoking Status: Never smoker Smokeless Tobacco Status: No Alcohol use: heavy (half fifth per day), recent Drug use: none - Family History Father Living Status: Cause of : Pancreatitis Hx Family Cardiac Disorders: No Hx Family Respiratory Disorders: No Hx Family Cancer: Yes Hx Family GI Disorders: No Hx Family Genitourinary Disorders: No Hx Family Endocrine Disorder: Yes Hx Family Musculoskeletal Disorders: No Hx Family Neuromuscular Disorders: No Hx Family Neurologic Disorders: Yes Hx Family HEENT Disorders: No Hx Family Autoimmune Disorders: No Hx Family Reproductive Disorders: No Medications & Allergies Gabapentin [Neurontin] 300 mg PO BID 04/10/17 [History] Omeprazole 20 mg PO DAILY 04/10/17 [History] Trazodone HCl 100 mg PO HS 04/10/17 [History] Valsartan/Hydrochlorothiazide [Diovan Hct 320-25 mg Tablet] 1 each PO DAILY 10/22 [History] Venlafaxine XR (24 HR) [Effexor XR] 37.5 mg PO BID 04/10/17 [History] amLODIPine [Norvasc] 5 mg PO DAILY 04/10/17 [History] Meloxicam 15 mg PO DAILY 04/12/17 [History] Rivaroxaban [Xarelto] 1 dose PO AD 30 Days #1 pack 04/12/17 [Rx] 3 Allergy/AdvReac Type Severity Reaction Status Date / Time No Known Allergies Allergy Verified 04/10/17 05:19 Review of Systems Psychiatric: Reports: anxiety Mental Status Exam Patient orientation: Yes Person, Yes Time, Yes Place Level of alertness: Alert Patient appearance: Appropriate Behavior: calm, cooperative Psychomotor activity: Normal Eye contact: Maintains Eye Contact Mood description: Euthymic/stable Affect description: congruent with mood Speech pattern: Coherent Speech volume: Normal Thought process: Intact Thought content: Yes Intact Attention span: Capable of Focused Attention Memory description: Grossly Intact Patient reliability: Reliable Historian Intelligence estimate: Average Judgment: Good Insight: Full Results - Vital Signs Vital signs: Temp Pulse Resp BP Pulse Ox 99.5 F 100 20 144/71 95 04/13/17 08:00 04/13/17 08:00 04/13/17 08:00 04/13/17 08:00 04/13/17 08:00 - Labs Labs: Laboratory Last Values WBC 3.7 K/mcL (4.3-11.1) L 04/13/17 08:20 RBC 3.36 M/mcL (3.82-4.97) L 04/13/17 08:20 Hgb 9.6 g/dL (11.5-15.4) L 04/13/17 08:20 Hct 30.9 % (35.3-44.9) L 04/13/17 08:20 MCV 92.0 fL (83.0-100.0) 04/13/17 08:20 MCH 28.6 pg (28.0-33.3) 04/13/17 08:20 MCHC 31.1 g/dL (31.6-35.5) L 04/13/17 08:20 RDW 14.8 % (11.5-14.5) H 04/13/17 08:20 Plt Count 102 K/mcL (140-400) L 04/13/17 08:20 MPV 12.1 fL (9.4-12.4) 04/13/17 08:20 Immature Gran % 0.3 % (0-4) 04/12/17 03:05 Seg Neutrophils % 44.0 % 04/13/17 08:20 Lymphocytes % 26.0 % 04/13/17 08:20 Monocytes % 20.0 % 04/13/17 08:20 Eosinophils % 10.0 % 04/13/17 08:20 Basophils % 0.3 % 04/12/17 03:05 Neutrophils # 1.6 K/mcL (1.6-8.9) 04/13/17 08:20 Lymphocytes # 1.0 K/mcL (0.6-4.6) 04/13/17 08:20 Monocytes # 0.7 K/mcL (0.0-1.3) 04/13/17 08:20 Eosinophils # 0.4 K/mcL (0.0-0.6) 04/13/17 08:20 Basophils # 0.0 K/mcL (0.0-0.2) 04/12/17 03:05 Nucleated RBCs/100 WBC 0.6 /100 WBC (0) H 04/12/17 03:05 Platelet Estimate Decreased (Normal) L 04/13/17 08:20 Large Platelets Present (Not Present) A 04/13/17 08:20 Immature Plt Fraction 8.7 % (1.1-6.1) H 04/13/17 08:20 PT 10.6 Seconds (9.4-12.1) 04/10/17 12:00 INR 1.0 04/10/17 12:00 APTT 44.7 Seconds (26.0-36.0) H 04/10/17 12:00 D-Dimer 607 ng/mLFEU (0-500) H 04/13/17 08:20 Sodium 141 mEq/L (136-145) 04/13/17 08:20 Potassium 3.6 mEq/L (3.5-4.5) 04/13/17 08:20 Chloride 108 mEq/L (98-109) 04/13/17 08:20 Carbon Dioxide 23 mEq/L (19-29) 04/13/17 08:20 BUN 18 mg/dL (7-20) 04/13/17 08:20 Creatinine 1.30 mg/dL (0.57-1.11) H 04/13/17 08:20 Est GFR ( Amer) 52 (> 60) L 04/13/17 08:20 Est GFR (Non-Af Amer) 43 (> 60) L 04/13/17 08:20 BUN/Creatinine Ratio 14 (6-26) 04/13/17 08:20 Glucose 100 mg/dL (70-99) H 04/13/17 08:20 Calculated Osmolality 294 (280-300) 04/13/17 08:20 Calcium 9.0 mg/dL (8.6-10.8) 04/13/17 08:20 Phosphorus 3.9 mg/dL (2.3-4.7) 04/13/17 08:20 Magnesium 1.6 mg/dL (1.6-2.6) 04/13/17 08:20 Total Bilirubin 1.3 mg/dL (0.2-1.2) H 04/10/17 12:00 AST 141 Units/L (5-34) H 04/10/17 12:00 ALT 56 Units/L (0-55) H 04/10/17 12:00 Alkaline Phosphatase 123 Units/L (38-126) 04/10/17 12:00 Serum Total Protein 7.8 g/dL (6.0-8.3) 04/10/17 12:00 Albumin 3.3 g/dL (3.5-5.0) L 04/10/17 12:00 Globulin 4.5 g/dL (2.4-3.5) H 04/10/17 12:00 Albumin/Globulin Ratio 0.7 (1.1-2.2) L 04/10/17 12:00 Vitamin B12 371 pg/mL (213-816) 04/13/17 08:20 Folate 9.7 ng/mL (7.0-31.4) 04/13/17 08:20 Stool Occult Blood Negative (Negative) 04/11/17 09:50 GLENN, Poly Interpret NEG 04/13/17 08:20 Consult Discharge Plan - Plan [facility]errals: [facility]Primary Care Provider[facility] - Prescriptions: Rivaroxaban [Xarelto] 1 dose PO AD 30 Days #1 pack
[2017-04-13] MEDS ORDERED: 0.9 % Sodium Chloride 1,000 ML IVC SCH (13:00)
--- NOTE | 2017-04-13 14:54 | Internal Med Progress Note ---
Date of Encounter: 04/13/17 Time of Encounter: 14:52 - Assessment and plan (1) Acute kidney injury Current Visit: Yes Status: Acute Assessment and plan: Gentle IV fluid hydration hold HCTZ and Valsartan will closely monitor renal function pt reports of using Meloxicam for pain relief at home, will hold NSAIDs at this time, given renal function (2) BRBPR (bright red blood per rectum) Current Visit: Yes Status: Acute Assessment and plan: GI evaluation appreciated Colonoscopy reported diffuse diverticulosis and internal hemorrhoids, fiber supplementation recommended No acute bleeding reported H&H low but acceptable no recurrent bleeding episodes reported stool occult negative Started on Xarelto for RUE DVT (3) DVT (deep venous thrombosis) Current Visit: Yes Status: Acute Assessment and plan: New finding of RUE DVT (Right brachial vein) pt reports of having DVT in the past b/l LE venous doppler negative for DVT Hematology evaluation appreciated started on Xarelto BID will closely monitor for any acute bleeding Pt has history of breast ca, s/p lumpectomy and chemotherapy, currently in remission. Qualifiers: DVT location: upper extremity Affected thrombotic vein of extremity: brachial Chronicity: acute Laterality: right Qualified Code(s): I82.621 - Acute embolism and thrombosis of deep veins of right upper extremity (4) Hypertension Current Visit: Yes Status: Chronic Assessment and plan: BP within acceptable range, continue home medications will closely monitor BP Qualifiers: Hypertension type: essential hypertension Qualified Code(s): I10 - Essential (primary) hypertension (5) Alcohol withdrawal Current Visit: Yes Status: Acute Assessment and plan: Will closely monitor for alcohol withdrawal continue folic acid and thiamine supplementation CIWA protocol Lorazepam as needed as per [facility] protocol will closely monitor As per patient she is already seeking help at the [facility] for alcohol abuse. Qualifiers: Complication of substance-induced condition: with unspecified complication Qualified Code(s): F10.239 - Alcohol dependence with withdrawal, unspecified (6) Hypomagnesemia Current Visit: Yes Status: Resolved Assessment and plan: Resolved continue to monitor electrolytes and replace as needed - Subjective Interval history: Pt is a 56 y/o female admitted for evaluation of lower GI bleed. Patient underwent colonoscopy this morning which showed diverticulosis and internal hemmorrhoids, no acute bleeding was reported. Pt resting in bed and denies an discomfort at this time Hematology consultation requested for anticoagulation for RUE DVT. Started on Xarelto - Constitutional Vitals: Temp Pulse Resp BP Pulse Ox 98.7 F 87 20 150/76 90 04/13/17 12:00 04/13/17 12:00 04/13/17 12:00 04/13/17 12:00 04/13/17 12:00 General appearance: Present: cooperative, A&O X 3, no acute distress, obese, answers questions appropriately - Head Head exam: Present: atraumatic, normocephalic - Eye Eye exam: Present: conjuntiva pink, sclera anicteric - Respiratory Respiratory exam: Present: CTAB. Absent: accessory muscle use, rales, rhonchi, wheezes - Cardiovascular Cardiovascular exam: Present: RRR, +S1, +S2. Absent: diastolic murmur, gallop, rubs, systolic murmur - GI/Abdominal GI/Abdominal exam: Present: normal bowel sounds, soft, no peritoneal signs. Absent: distended, tenderness - Extremities Exam Extremities exam: Present: warm, radial pulses palpable and symmetrical. Absent : calf tenderness, tenderness - Neurological Exam Neurological exam: Present: alert, oriented X3 - Psychiatric Psychiatric exam: Present: normal affect, normal mood. Absent: homicidal ideation, suicidal ideation Internal Medicine: Result - Labs CBC & Chem 7: 04/13/17 08:20 04/13/17 08:20 Labs: Short CBC 04/13/17 Range/Units 08:20 WBC 3.7 L (4.3-11.1) K/mcL Hgb 9.6 L (11.5-15.4) g/dL Hct 30.9 L (35.3-44.9) % Plt Count 102 L (140-400) K/mcL Neutrophils # 1.6 (1.6-8.9) K/mcL BMP 04/13/17 08:20 Sodium 141 Potassium 3.6 Chloride 108 Carbon Dioxide 23 BUN 18 Creatinine 1.30 H Glucose 100 H Calcium 9.0 - ABG Interpretation ABG results: PT/INR, D-dimer PT 10.6 Seconds (9.4-12.1) 04/10/17 12:00 D-Dimer 607 ng/mLFEU (0-500) H 04/13/17 08:20 Consult Discharge Plan - Plan [facility]errals: [facility] [Primary Care Provider] - Prescriptions: Rivaroxaban [Xarelto] 1 dose PO AD 30 Days #1 pack
[2017-04-13] MEDS: Psyllium 1 PACKET POWD.PACK PO SCH ×2 (16:25→19:40)
[2017-04-13] MEDS: traZODone 50 MG TABLET PO SCH (19:41)
[2017-04-14 08:11] LABS: Basophils % 0.5 %; Eosinophils # 0.3 K/mcL (0.0-0.6); Eosinophils % 7.1 %; Hematocrit 34.5 % (35.3-44.9); Hemoglobin 10.6 g/dL (11.5-15.4); Immature Granulocytes % 0.3 % (0-4); Lymphocytes # 1.1 K/mcL (0.6-4.6); Lymphocytes % 27.5 %; Mean Corpuscular HGB Conc 30.7 g/dL (31.6-35.5); Mean Corpuscular Hemoglobin 28.1 pg (28.0-33.3); Mean Corpuscular Volume 91.5 fL (83.0-100.0); Mean Platelet Volume 11.8 fL (9.4-12.4); Monocytes # 0.8 K/mcL (0.0-1.3); Monocytes % 19.6 %; Neutrophils # 1.8 K/mcL (1.6-8.9); Platelet Count 117 K/mcL (140-400); Red Blood Count 3.77 M/mcL (3.82-4.97); Red Cell Distribution Width 14.8 % (11.5-14.5)
[2017-04-14 08:19] LABS: Platelet Estimate Normal (Normal)
[2017-04-14 08:26] LABS: BUN/Creatinine Ratio 12 (6-26); Blood Urea Nitrogen 12 mg/dL (7-20); Calcium 9.6 mg/dL (8.6-10.8); Carbon Dioxide 23 mEq/L (19-29); Chloride 109 mEq/L (98-109); Glucose 99 mg/dL (70-99); Magnesium 1.5 mg/dL (1.6-2.6); Osmolality,Calculated 296 (280-300); Phosphorous 3.8 mg/dL (2.3-4.7); Sodium 143 mEq/L (136-145); eGFR For African Americans > 60 (> 60); eGFR For Non-African Americans 57 (> 60)
[2017-04-14] MEDS: Gabapentin 300 MG CAPSULE PO SCH (08:30)
[2017-04-14] MEDS: Thiamine (B-1) 100 MG TABLET PO SCH (08:30)
[2017-04-14] MEDS: Multivit/Ca/Min/Fe/FA 1 TAB TABLET PO SCH (08:31)
[2017-04-14] MEDS: Venlafaxine XR (24 HR) 37.5 MG CAP.ER.24H PO SCH (08:31)
[2017-04-14] MEDS: Folic Acid 1 MG TABLET PO SCH (08:31)
[2017-04-14] MEDS: amLODIPine 5 MG TABLET PO SCH (08:31)
[2017-04-14] MEDS: *HR* Rivaroxaban 15 MG TABLET PO SCH (08:32)
[2017-04-14] MEDS: Psyllium 1 PACKET POWD.PACK PO SCH (08:32)
[2017-04-14 08:35] LABS: Potassium 4.1 mEq/L (3.5-4.5)
[2017-04-14] MEDS ORDERED: Magnesium Sulfate 1 GM in D5% in Water 100 ML IVPB ONE (08:54)
[2017-04-14] MEDS ORDERED: hydroCHLOROthiazide 25 MG TABLET PO SCH (09:00)
[2017-04-14] MEDS ORDERED: Valsartan 160 MG TABLET PO SCH (09:00)
[2017-04-14 11:33] VITALS: BP 133/57
--- NOTE | 2017-04-14 11:51 | Discharge Summary ---
Date of Encounter: 04/14/17 Time of Encounter: 11:46 - Discharge Diagnosis (1) Acute kidney injury Priority: Secondary Status: Resolved (2) BRBPR (bright red blood per rectum) Priority: Primary Status: Acute (3) DVT (deep venous thrombosis) Priority: Secondary Status: Acute Qualifiers: DVT location: upper extremity Affected thrombotic vein of extremity: brachial Chronicity: acute Laterality: right Qualified Code(s): I82.621 - Acute embolism and thrombosis of deep veins of right upper extremity (4) Hypertension Priority: Secondary Status: Chronic Qualifiers: Hypertension type: essential hypertension Qualified Code(s): I10 - Essential (primary) hypertension (5) Alcohol withdrawal Priority: Secondary Status: Acute Qualifiers: Complication of substance-induced condition: with unspecified complication Qualified Code(s): F10.239 - Alcohol dependence with withdrawal, unspecified (6) Hypomagnesemia Priority: Secondary Status: Acute Comments: Mg supplemented - Discharge Medications Prescriptions: Folic Acid 1 mg PO DAILY #30 tablet hydroCHLOROthiazide [Hydrochlorothiazide] 25 mg PO DAILY #30 tablet Metoprolol [Lopressor] 12.5 mg PO BID #60 tablet Rivaroxaban [Xarelto] 1 dose PO AD 30 Days #1 pack Thiamine (B-1) [Vitamin B-1] 100 mg PO DAILY #30 tablet Valsartan [Diovan] 240 mg PO DAILY #30 tablet Home Medications: Gabapentin [Neurontin] 300 mg PO BID 04/10/17 [History] Omeprazole 20 mg PO DAILY 04/10/17 [History] Trazodone HCl 100 mg PO HS 04/10/17 [History] Venlafaxine XR (24 HR) [Effexor Xr] 37.5 mg PO BID 04/10/17 [History] amLODIPine [Norvasc] 5 mg PO DAILY 04/10/17 [History] Rivaroxaban [Xarelto] 1 dose PO AD 30 Days #1 pack 04/12/17 [Rx] Folic Acid 1 mg PO DAILY #30 tablet 04/14/17 [Rx] Metoprolol [Lopressor] 12.5 mg PO BID #60 tablet 04/14/17 [Rx] Thiamine (B-1) [Vitamin B-1] 100 mg PO DAILY #30 tablet 04/14/17 [Rx] Valsartan [Diovan] 240 mg PO DAILY #30 tablet 04/14/17 [Rx] hydroCHLOROthiazide [Hydrochlorothiazide] 25 mg PO DAILY #30 tablet 04/14/17 [Rx ] Allergies/Adverse Reactions: 3 Allergy/AdvReac Type Severity Reaction Status Date / Time No Known Allergies Allergy Verified 04/10/17 05:19 Date of admission: 04/10/17 03:55 Primary care physician: CHARLES JACOBS Consults: 04/10/17 05:42 Consult to Pastoral Services [CONS] Routine Comment: 04/10/17 09:12 Consult to Gastroenterology [CONS] Routine Consulting Provider: Gastroenterology Jocelyn Reason for Consult: BRBPR Call Completed: No 04/10/17 09:15 Consult to Services Executive [CONS] Routine Reason for SW Consult: chemical dependency 04/12/17 07:54 Consult to Oncology Hematology [CONS] Routine Consulting Provider: Victoriano Rios Jr Reason for Consult: RUE DVT Call Completed: Yes 04/12/17 11:02 Consult to Psychiatry [CONS] Stat Consulting Provider: Psychiatry Jocelyn Reason for Consult: transfer from [facility] inpatient psych, was admitted there for suicidal ideation Call Completed: Yes Discharging clinician: Ana Lacey Anticipated date of discharge: 04/14/17 - Patient Status Disposition: Home, Self-Care Condition: Good Functional capacity at discharge: independent ambulation Overall status at discharge: patient is back to baseline - Discharge Instructions [facility] Care Provider[facility] - Additional Instructions: Please follow up with your primary care physician within five days after your discharge from the hospital. Please follow up with your ultrasound manager within one to two weeks after your discharge from the hospital. Your home medications have been changed as follows: 1. Xarelto has been added to your home medicaitions. Please take Xarelto 15mg twice a day for 3 weeks followed by 20mg once a day. 2. Your home dose of Valsartan/Hydrochlorothiazide has been discontinued. INstead, Valsartan dose has been decreased to 240mg once a day and Hydrochlorothiazide has been continued at 25mg once a day. 3. Metoprolol 12.5mg twice a day has been added to your home medications 4. Folate and thiamine supplements have been added to your home medications High fiber diet and supplementation are recommended. Please obtain Metamucil over the counter Alcohol abstinence is advised. Please seek medical help immediately if you are noted to have any acute bleeding at home, as being on Xarelto increases your risk of bleeding. Resume all your other home medications as prescribed by your primary care physician. - Diet and Activity Activity: resume usual activities as tolerated Diet: low salt diet (high fiber diet) Hospital course: Ms. Bradley is a 56 year old female with PMH of alcohol abuse, breast ca in remission, hypertension, DVT who was transferred to [facility] from [facility] for management of BRBPR. She was followed by GI and underwent colonoscopy. Colonoscopy showed diverticulosis and internal hemmorhoids and no acute bleeding was reported. She was also found to have RUE DVT for which she was started on Xarelto after GI work up was negative for acute bleeds. She was also closely monitor for alcohol withdrawals. She reported of currently being in a detox program with the [facility]. At this time, pt is hemodynamically stable and will be discharged to home with follow up with PCP, hematology, and [facility] detox program. pt demonstrates understanding of her diagnosis and agrees with the discharge care and plan. - Time Spent with Patient Total time spent providing and/or coordinating discharge services: Less than 30 minutes - Constitutional Vitals: Temp Pulse Resp BP Pulse Ox 99.5 F 99 16 133/57 96 04/14/17 04:00 04/14/17 08:30 04/14/17 08:30 04/14/17 11:33 04/14/17 09:31 General appearance: Present: cooperative, A&O X 3, no acute distress, obese, answers questions appropriately - Head Head exam: Present: atraumatic, normocephalic - Eye Eye exam: Present: conjuntiva pink, sclera anicteric - Respiratory Respiratory exam: Present: CTAB. Absent: accessory muscle use, rales, rhonchi, wheezes - Cardiovascular Cardiovascular exam: Present: RRR, +S1, +S2. Absent: diastolic murmur, gallop, rubs, systolic murmur - GI/Abdominal GI/Abdominal exam: Present: normal bowel sounds, soft, no peritoneal signs. Absent: distended, tenderness - Extremities Exam Extremities exam: Present: warm, radial pulses palpable and symmetrical. Absent : calf tenderness, cyanotic, pedal edema - Neurological Exam Neurological exam: Present: alert, oriented X3 - Psychiatric Psychiatric exam: Present: normal affect, normal mood. Absent: suicidal ideation
[2017-04-17 13:27] LABS: Kappa Qnt Free Light Chains 6.26 mg/dL (0.33-1.94); Lambda Qnt Free Light Chains 4.41 mg/dL (0.57-2.63)
== END 2017-04-14 16:50 | disposition home or self-care (01) | DRG 378 ==
LOC: 2NENU 03:55 → SUATTDRO 03:55
PROVIDERS: ADMIT Family Medicine; ATTEND Internal Medicine

== ENCOUNTER 2021-10-20 21:22 | Inpatient (IN) ==
[2021-10-20 22:19] LABS: Basophils % 0.3 %; Eosinophils # 0.2 K/mcL (0.0-0.6); Eosinophils % 5.5 %; Hematocrit 32.3 % (35.3-44.9); Lymphocytes % 26.4 %; Mean Corpuscular Hemoglobin 27.9 pg (28.0-33.3); Mean Corpuscular Volume 90.2 fL (83.0-100.0); Mean Platelet Volume 11.8 fL (9.4-12.4); Monocytes # 0.6 K/mcL (0.0-1.3); Neutrophils # 1.9 K/mcL (1.6-8.9); Platelet Count 134 K/mcL (140-400); Red Blood Count 3.58 M/mcL (3.82-4.97); Segmented Neutrophils % 51.8 %; White Blood Count 3.6 K/mcL (4.3-11.1)
[2021-10-20 22:50] LABS: Acetaminophen < 10 mcg/mL (10-20); BUN/Creatinine Ratio 15 (6-26); Blood Urea Nitrogen 21 mg/dL (8-23); Calcium 9.3 mg/dL (8.6-10.3); Carbon Dioxide 25 mEq/L (23-29); Chloride 106 mEq/L (98-107); Chol/HDL Ratio 1.9 (0-4.9); Cholesterol 160 mg/dL (< 200); Ethanol < 10 mg/dL (Less than 10); Glucose 102 mg/dL (70-105); HDL Cholesterol 83 mg/dL (40-59); LDL Cholesterol,Calculated 60 mg/dL (< 100); Osmolality,Calculated 295 (280-300); Potassium 4.2 mEq/L (3.5-5.1); Salicylate < 2.5 mg/dL (15.0-30.0); Sodium 141 mEq/L (136-145); Triglycerides 84 mg/dL (< 150); Troponin I 0.14 ng/mL (< 0.04); eGFR For African Americans 47 (> 60); eGFR For Non-African Americans 39 (> 60)
[2021-10-20 23:04] LABS: Influenza A PCR Negative (Negative); Influenza B PCR Negative (Negative); Resp. Syncytial Virus PCR Negative (Negative)
[2021-10-20 23:07] LABS: SARS-CoV-2 by PCR (In House) Negative (Negative)
[2021-10-21] MEDS ORDERED: Ondansetron ODT 4 MG TAB.RAPDIS SL PRN (01:35)
[2021-10-21] MEDS ORDERED: Melatonin 3 MG TABLET PO PRN (01:35)
[2021-10-21] MEDS ORDERED: Naloxone 0.4 MG/ML INJ IVP PRN (01:35)
[2021-10-21] MEDS ORDERED: *HR* LORazepam 2 MG/ML VIAL IVP PRN ×2 (02:26)
[2021-10-21 03:36] LABS: Magnesium 1.5 mg/dL (1.6-2.6); Phosphorous 3.8 mg/dL (2.7-4.5)
[2021-10-21 03:44] LABS: INR 1.1; Prothrombin Time 11.8 Seconds (9.4-12.1)
[2021-10-21 03:46] LABS: Activated Partial Thrombo Time 29.4 Seconds (26.0-36.0)
[2021-10-21] MEDS ORDERED: Furosemide 40 MG/4 ML VIAL IVP ONE (04:14)
[2021-10-21 05:14] LABS: Albumin/Globulin Ratio 1.3 (1.1-2.2); Bilirubin,Total 0.9 mg/dL (0.3-1.0); Calcium 9.3 mg/dL (8.6-10.3); Chol/HDL Ratio 1.9 (0-4.9); Potassium 4.2 mEq/L (3.5-5.1); Troponin I 0.1 ng/mL (< 0.04)
[2021-10-21] MEDS: *HR* Heparin 5,000 UNIT/ML VIAL SQ SCH ×3 (05:49→22:13)
[2021-10-21 06:32] LABS: Bacteria,Urine Few per hpf (None-Few); Bilirubin,Urine Negative (Negative); Blood,Urine Negative (Negative); Clarity,Urine Clear (Clear); Color,Urine Light-Yellow (Yellow); Glucose,Urine (UA) Normal (Normal); Hyaline Casts,Urine Few per lpf (None Seen); Ketones,Urine Negative (Negative); Leukocyte Esterase,Urine Negative (Negative); Mucus,Urine Few per lpf (None-Few); Nitrite,Urine Negative (Negative); Protein,Urine 30 mg/dL (Neg-Trace); RBC,Urine 0-3 per hpf (0-3); Squamous Epithelial Cell,Urine Few per hpf (None-Few); Urobilinogen,Urine Normal (Normal)
[2021-10-21 07:27] LABS: Amphetamine Screen,Urine Negative ng/mL (Cutoff=1000); Barbiturate Screen,Urine Negative ng/mL (Cutoff=200); Benzodiazepines Screen,Urine Negative ng/mL (Cutoff=300)
[2021-10-21 07:28] LABS: Cannabinoid Screen,Urine Positive ng/mL (Cutoff = 50); Cocaine Screen,Urine Negative ng/mL (Cutoff= 300); Opiate Screen,Urine Negative ng/mL (Cutoff=300); Phencyclidine Screen,Urine Negative ng/mL (Cutoff=25)
[2021-10-21] MEDS ORDERED: Perflutren Lipid Microsphere 1.3 ML in 0.9 % Sodium Chloride 8.7 ML IVP PRN (07:49)
[2021-10-21] MEDS: Folic Acid 1 MG TABLET PO SCH (07:49)
[2021-10-21] MEDS: Thiamine (B-1) 100 MG TABLET PO SCH (07:49)
[2021-10-21] MEDS ORDERED: Thiamine (B-1) 200 MG in 0.9 % Sodium Chloride 50 ML IVPB SCH (09:00)
[2021-10-21] MEDS ORDERED: Folic Acid 1 MG in 0.9 % Sodium Chloride 50 ML IVPB SCH (09:00)
[2021-10-21] MEDS ORDERED: cloNIDine HCL 0.1 MG TABLET PO PRN (17:07)
[2021-10-21] MEDS ORDERED: Ondansetron ODT 4 MG TAB.RAPDIS PO PRN (17:07)
[2021-10-21] MEDS: Venlafaxine XR (24 HR) 150 MG CAP.ER.24H PO SCH (17:48)
[2021-10-21] MEDS: *HR* LORazepam 2 MG/ML VIAL IVP PRN (19:54)
[2021-10-21] MEDS: carvediloL 25 MG TABLET PO SCH (19:55)
[2021-10-21] MEDS: hydrALAZINE 25 MG TABLET PO SCH (19:55)
[2021-10-22 03:40] LABS: Hemoglobin 9.4 g/dL (11.5-15.4); Mean Corpuscular HGB Conc 31.3 g/dL (31.6-35.5); Mean Corpuscular Hemoglobin 27.9 pg (28.0-33.3); Mean Platelet Volume 11.6 fL (9.4-12.4); Red Blood Count 3.37 M/mcL (3.82-4.97)
[2021-10-22 03:42] LABS: Eosinophils # 0.1 K/mcL (0.0-0.6); Immature Platelets 5.6 % (1.1-6.1); Platelet Count 120 K/mcL (140-400)
[2021-10-22 03:58] LABS: Potassium 3.5 mEq/L (3.5-5.1)
[2021-10-22] MEDS: *HR* LORazepam 2 MG/ML VIAL IVP PRN (04:12)
[2021-10-22 04:40] LABS: Lymphocytes # 0.8 K/mcL (0.6-4.6); Monocytes # 0.4 K/mcL (0.0-1.3); Neutrophils # 1.7 K/mcL (1.6-8.9); Platelet Estimate Decreased (Normal)
[2021-10-22] MEDS: *HR* Heparin 5,000 UNIT/ML VIAL SQ SCH ×3 (05:45→22:01)
[2021-10-22] MEDS: Folic Acid 1 MG TABLET PO SCH (08:53)
[2021-10-22] MEDS: Aspirin Enteric Coated 81 MG Tablet PO SCH (08:53)
[2021-10-22] MEDS: carvediloL 25 MG TABLET PO SCH ×2 (08:53→17:46)
[2021-10-22] MEDS: Venlafaxine XR (24 HR) 150 MG CAP.ER.24H PO SCH (08:53)
[2021-10-22] MEDS: Thiamine (B-1) 100 MG TABLET PO SCH (08:53)
[2021-10-22] MEDS: hydrALAZINE 25 MG TABLET PO SCH ×2 (08:54→22:01)
[2021-10-22] MEDS: Isosorbide MONOnitrate (24 HR) 30 MG TAB.ER.24H PO SCH (08:54)
[2021-10-22] MEDS: allopurinoL 100 MG TABLET PO SCH (08:54)
[2021-10-23 01:30] LABS: Eosinophils # 0.2 K/mcL (0.0-0.6); Eosinophils % 4.3 %; Hematocrit 29.8 % (35.3-44.9); Immature Granulocytes % 0.3 % (0-4); Red Blood Count 3.31 M/mcL (3.82-4.97); White Blood Count 3.5 K/mcL (4.3-11.1)
[2021-10-23 01:31] LABS: Basophils % 0.6 %; Hemoglobin 9.2 g/dL (11.5-15.4); Immature Platelets 6.2 % (1.1-6.1); Lymphocytes % 21.4 %; Mean Corpuscular HGB Conc 30.9 g/dL (31.6-35.5); Mean Corpuscular Hemoglobin 27.8 pg (28.0-33.3); Mean Platelet Volume 11.3 fL (9.4-12.4); Monocytes # 0.6 K/mcL (0.0-1.3); Monocytes % 17.4 %; Platelet Count 128 K/mcL (140-400); Red Cell Distribution Width 17.7 % (11.5-14.5)
[2021-10-23 01:33] LABS: Lymphocytes # 0.8 K/mcL (0.6-4.6)
[2021-10-23 02:51] LABS: Calcium 9.1 mg/dL (8.6-10.3); Potassium 3.6 mEq/L (3.5-5.1)
[2021-10-23] MEDS: *HR* Heparin 5,000 UNIT/ML VIAL SQ SCH ×3 (05:19→23:10)
[2021-10-23] MEDS: *HR* LORazepam 2 MG/ML VIAL IVP PRN (05:19)
[2021-10-23] MEDS: hydrALAZINE 25 MG TABLET PO SCH ×2 (09:38→20:11)
[2021-10-23] MEDS: Venlafaxine XR (24 HR) 150 MG CAP.ER.24H PO SCH (09:38)
[2021-10-23] MEDS: Aspirin Enteric Coated 81 MG Tablet PO SCH (09:38)
[2021-10-23] MEDS: Thiamine (B-1) 100 MG TABLET PO SCH (09:38)
[2021-10-23] MEDS: Isosorbide MONOnitrate (24 HR) 30 MG TAB.ER.24H PO SCH (09:38)
[2021-10-23] MEDS: Folic Acid 1 MG TABLET PO SCH (09:39)
[2021-10-23] MEDS: allopurinoL 100 MG TABLET PO SCH (09:39)
[2021-10-23] MEDS: carvediloL 25 MG TABLET PO SCH ×2 (09:41→16:49)
[2021-10-23] MEDS ORDERED: Furosemide 20 MG/2 ML VIAL IVP ONE ×2 (13:00→15:41)
[2021-10-24 05:41] LABS: Hematocrit 31.3 % (35.3-44.9); Red Cell Distribution Width 17.9 % (11.5-14.5)
[2021-10-24 05:43] LABS: Basophils % 0.7 %; Eosinophils # 0.2 K/mcL (0.0-0.6); Eosinophils % 6.2 %; Hemoglobin 9.8 g/dL (11.5-15.4); Immature Platelets 5.9 % (1.1-6.1); Lymphocytes # 0.7 K/mcL (0.6-4.6); Lymphocytes % 24.7 %; Mean Corpuscular HGB Conc 31.3 g/dL (31.6-35.5); Mean Corpuscular Hemoglobin 28.2 pg (28.0-33.3); Mean Corpuscular Volume 90.2 fL (83.0-100.0); Monocytes # 0.5 K/mcL (0.0-1.3); Monocytes % 17.2 %; Neutrophils # 1.5 K/mcL (1.6-8.9); Platelet Count 138 K/mcL (140-400); Red Blood Count 3.47 M/mcL (3.82-4.97); Segmented Neutrophils % 51.2 %; White Blood Count 2.9 K/mcL (4.3-11.1)
[2021-10-24 06:03] LABS: Calcium 9.4 mg/dL (8.6-10.3); Potassium 3.7 mEq/L (3.5-5.1)
[2021-10-24] MEDS: *HR* Heparin 5,000 UNIT/ML VIAL SQ SCH ×3 (06:52→19:39)
[2021-10-24] MEDS: Isosorbide MONOnitrate (24 HR) 30 MG TAB.ER.24H PO SCH (08:26)
[2021-10-24] MEDS: carvediloL 25 MG TABLET PO SCH ×2 (08:26→17:08)
[2021-10-24] MEDS: hydrALAZINE 25 MG TABLET PO SCH ×2 (08:26→19:38)
[2021-10-24] MEDS: Thiamine (B-1) 100 MG TABLET PO SCH (08:26)
[2021-10-24] MEDS: Venlafaxine XR (24 HR) 150 MG CAP.ER.24H PO SCH (08:26)
[2021-10-24] MEDS: Aspirin Enteric Coated 81 MG Tablet PO SCH (08:27)
[2021-10-24] MEDS: Folic Acid 1 MG TABLET PO SCH (08:28)
[2021-10-24] MEDS: allopurinoL 100 MG TABLET PO SCH (08:29)
[2021-10-24] MEDS: Acetaminophen 325 MG TABLET PO PRN (18:00)
[2021-10-25] MEDS: *HR* Heparin 5,000 UNIT/ML VIAL SQ SCH ×3 (05:01→21:48)
[2021-10-25] MEDS: amLODIPine 5 MG TABLET PO SCH (05:30)
[2021-10-25] MEDS: hydrALAZINE 25 MG TABLET PO SCH ×2 (07:25→19:57)
[2021-10-25] MEDS: carvediloL 25 MG TABLET PO SCH ×2 (07:25→15:50)
[2021-10-25] MEDS: Venlafaxine XR (24 HR) 150 MG CAP.ER.24H PO SCH (07:25)
[2021-10-25] MEDS: Aspirin Enteric Coated 81 MG Tablet PO SCH (07:25)
[2021-10-25] MEDS: Thiamine (B-1) 100 MG TABLET PO SCH (07:25)
[2021-10-25] MEDS: Isosorbide MONOnitrate (24 HR) 30 MG TAB.ER.24H PO SCH (07:25)
[2021-10-25] MEDS: allopurinoL 100 MG TABLET PO SCH (07:25)
[2021-10-25] MEDS: Folic Acid 1 MG TABLET PO SCH (07:25)
[2021-10-25 07:48] LABS: Hematocrit 31.5 % (35.3-44.9); Hemoglobin 9.6 g/dL (11.5-15.4); Immature Platelets 6.3 % (1.1-6.1); Lymphocytes # 0.6 K/mcL (0.6-4.6); Mean Corpuscular HGB Conc 30.5 g/dL (31.6-35.5); Mean Corpuscular Hemoglobin 27.9 pg (28.0-33.3); Mean Corpuscular Volume 91.6 fL (83.0-100.0); Mean Platelet Volume 10.1 fL (9.4-12.4); Platelet Count 130 K/mcL (140-400); Red Blood Count 3.44 M/mcL (3.82-4.97); Red Cell Distribution Width 17.9 % (11.5-14.5); White Blood Count 2.8 K/mcL (4.3-11.1)
[2021-10-25 08:05] LABS: Calcium 9.3 mg/dL (8.6-10.3); Potassium 3.6 mEq/L (3.5-5.1)
[2021-10-25 09:05] LABS: Eosinophils # 0.1 K/mcL (0.0-0.6); Monocytes # 0.4 K/mcL (0.0-1.3); Neutrophils # 1.7 K/mcL (1.6-8.9)
[2021-10-25 09:06] LABS: Platelet Estimate Slight Decrease (Normal); Reactive Lymphocytes Present (Not Present)
[2021-10-25] MEDS ORDERED: 0.9 % Sodium Chloride 500 ML IVC ONE (13:28)
[2021-10-25] MEDS ORDERED: Lidocaine Viscous Oral Soln 15 ML SOLUTION MM PRN (13:28)
[2021-10-26] MEDS: *HR* Heparin 5,000 UNIT/ML VIAL SQ SCH ×3 (05:11→21:28)
[2021-10-26] MEDS: Isosorbide MONOnitrate (24 HR) 30 MG TAB.ER.24H PO SCH (07:57)
[2021-10-26] MEDS: Venlafaxine XR (24 HR) 150 MG CAP.ER.24H PO SCH (07:57)
[2021-10-26] MEDS: Aspirin Enteric Coated 81 MG Tablet PO SCH (07:57)
[2021-10-26] MEDS: amLODIPine 5 MG TABLET PO SCH (07:57)
[2021-10-26] MEDS: Thiamine (B-1) 100 MG TABLET PO SCH (07:57)
[2021-10-26] MEDS: carvediloL 25 MG TABLET PO SCH ×2 (07:57→17:27)
[2021-10-26] MEDS: Folic Acid 1 MG TABLET PO SCH (07:58)
[2021-10-26] MEDS: allopurinoL 100 MG TABLET PO SCH (07:58)
[2021-10-26] MEDS: hydrALAZINE 25 MG TABLET PO SCH ×2 (07:58→21:27)
[2021-10-26] MEDS ORDERED: amLODIPine 5 MG TABLET PO ONE (10:45)
[2021-10-26] MEDS: Acetaminophen 325 MG TABLET PO PRN ×2 (17:30→23:41)
[2021-10-27] MEDS: *HR* Heparin 5,000 UNIT/ML VIAL SQ SCH ×2 (05:30→13:52)
[2021-10-27] MEDS ORDERED: Sildenafil Citrate 20 MG TABLET PO SCH (09:00)
[2021-10-27] MEDS ORDERED: amLODIPine 5 MG TABLET PO SCH (09:00)
[2021-10-27] MEDS: Aspirin Enteric Coated 81 MG Tablet PO SCH (09:06)
[2021-10-27] MEDS: carvediloL 25 MG TABLET PO SCH ×2 (09:06→16:34)
[2021-10-27] MEDS: Folic Acid 1 MG TABLET PO SCH (09:07)
[2021-10-27] MEDS: Venlafaxine XR (24 HR) 150 MG CAP.ER.24H PO SCH (09:07)
[2021-10-27] MEDS: hydrALAZINE 25 MG TABLET PO SCH (09:08)
[2021-10-27] MEDS: Isosorbide MONOnitrate (24 HR) 30 MG TAB.ER.24H PO SCH (09:08)
[2021-10-27] MEDS: Thiamine (B-1) 100 MG TABLET PO SCH (09:10)
[2021-10-27] MEDS: allopurinoL 100 MG TABLET PO SCH (09:10)
[2021-10-27 14:18] LABS: Influenza A PCR Negative (Negative); Influenza B PCR Negative (Negative); Resp. Syncytial Virus PCR Negative (Negative)
[2021-10-27 14:22] LABS: SARS-CoV-2 by PCR (In House) Negative (Negative)
[2021-10-27 14:31] VITALS: BP 148/77; PULSE 80; TEMP 98; O2SAT 93
[2021-10-27] MEDS ORDERED: Furosemide 20 MG TABLET PO SCH (17:30)
== END 2021-10-27 18:13 | DRG 291 ==
LOC: EMEROOARM 21:22 → 3NENU 21:22 → SUATTDRO 10-21 00:50 → 3NENU 10-21 02:19 → SUATTDRO 10-24 15:21
PROVIDERS: ADMIT Nurse Practitioner; ATTEND Nurse Practitioner